=== PATIENT | female | born 1990 | race Caucasian/White ===

== ENCOUNTER 2020-08-04 15:46 | Day surgery (SDC) | payer BC ==
[2020-08-04] MEDS ORDERED: Lactated Ringers 1,000 ML IV SCH (16:00)
[2020-08-04] MEDS ORDERED: Lidocaine 1% with EPINEPHrine 1:100,000 20 ML MDV ONE (16:08)
[2020-08-04] MEDS ORDERED: ceFAZolin 2 GM in Premix Bag 1 BAG IV ONE (16:47)
[2020-08-04] MEDS ORDERED: Sodium Chloride 0.9% 2.5 ML Syringe FLUSH PRN (16:47)
[2020-08-04] MEDS ORDERED: Sodium Chloride 0.9% 10 ML SDV IV PRN (16:47)
[2020-08-04] MEDS ORDERED: Sodium Chloride 0.9% 10 ML Syringe FLUSH PRN (16:47)
[2020-08-04] MEDS ORDERED: Midazolam 1 MG/ML 2 ML SDV ONE ×2 (17:04→17:29)
[2020-08-04] MEDS ORDERED: fentaNYL 100 MCG/2 ML SDV ONE (17:04)
[2020-08-04] MEDS ORDERED: Propofol 200 MG/20 ML SDV ONE ×2 (17:04→18:36)
[2020-08-04] MEDS ORDERED: Glycopyrrolate 0.2 MG/ML SDV ONE (17:08)
[2020-08-04] MEDS ORDERED: Ondansetron 4 MG/2 ML SDV ONE (17:08)
[2020-08-04] MEDS ORDERED: Succinylcholine/Sod PF 100 MG/5 ML SYRINGE IV ONE (17:08)
[2020-08-04] MEDS ORDERED: Lidocaine 2% 5 ML SDV ONE (17:08)
[2020-08-04] MEDS ORDERED: fentaNYL 100 MCG/2 ML SDV IVPUSH PRN (17:34)
[2020-08-04] MEDS ORDERED: Acetaminophen 1,000 MG in Premix Bag 1 BAG IV PRN (17:34)
--- NOTE | 2020-08-04 17:34 | PCM.PREANE ---
Preanesthetic Assessment - Anesthesia/Transfusion/Family Hx Anesthesia History: Prior Anesthesia Without Reaction Family History of Anesthesia Reaction: No Transfusion History: No Prior Transfusion(s) - Physical Assessment NPO Status Date: 08/04/20 NPO Status Time: 07:00 Vital Signs: Last Vital Signs Temp 36.1 C 08/04/20 17:18 Pulse 88 08/04/20 17:18 Resp 15 08/04/20 17:18 BP 132/60 08/04/20 17:18 Pulse Ox 97 08/04/20 17:18 Height: 1.57 m Weight: 81.647 kg ASA Class: 1E - Lab Values: Laboratory Last Values WBC 18.10 K/uL (4.0-11.0) H 08/04/20 17:00 RBC 4.24 M/uL (4.30-5.90) L 08/04/20 17:00 Hgb 13.6 g/dL (12.0-16.0) 08/04/20 17:00 Hct 41.5 % (36.0-46.0) 08/04/20 17:00 MCV 97.9 fL (80.0-98.0) 08/04/20 17:00 MCH 32.1 pg (27.0-32.0) H 08/04/20 17:00 MCHC 32.8 g/dL (31.0-37.0) 08/04/20 17:00 RDW Std Deviation 48.4 fl (28.0-62.0) 08/04/20 17:00 RDW Coeff of Malissa 14 % (11.0-15.0) 08/04/20 17:00 Plt Count 270 K/uL (150-400) 08/04/20 17:00 MPV 9.50 fL (7.40-12.00) 08/04/20 17:00 Nucleated RBC % 0.0 /100WBC 08/04/20 17:00 Nucleated RBCs # 0 K/uL 08/04/20 17:00 SARS-CoV-2 RNA (BELLA) NEGATIVE (NEGATIVE) 08/04/20 16:00 - Allergies Allergies/Adverse Reactions: Allergies Allergy/AdvReac Type Severity Reaction Status Date / Time No Known Allergies Allergy Verified 08/04/20 16:23 - Acknowledgements Anesthesia Type Planned: Spinal Pt an Appropriate Candidate for the Planned Anesthesia: Yes Alternatives and Risks of Anesthesia Discussed w Pt/Guardian: Yes Pt/Guardian Understands and Agrees with Anesthesia Plan: Yes PreAnesthesia Questionnaire HEENT History: Reports: Impaired Vision Other HEENT History: wears glasses Cardiovascular History: Reports: None Gastrointestinal History: Reports: None Genitourinary History: Reports: None Musculoskeletal History: Reports: Fracture Other Musculoskeletal History: states had fractured vertebra Neurological History: Reports: None Psychiatric History: Reports: None Endocrine/Metabolic History: Reports: None Hematologic History: Reports: None Oncologic (Cancer) History: Reports: None Dermatologic History: Reports: None - Infectious Disease History Infectious Disease History: Reports: None - Past Surgical History Head Surgeries/Procedures: Reports: None HEENT Surgical History: Reports: Oral Surgery Other HEENT Surgeries/Procedures: states had wisdom teeth extracted Cardiovascular Surgical History: Reports: None Respiratory Surgical History: Reports: None GI Surgical History: Reports: None Female Surgical History: Reports: Other (See Below) Other Female Surgeries/Procedures: I&D bartholin abscess x 2 Endocrine Surgical History: Reports: None Neurological Surgical History: Reports: None Musculoskeletal Surgical History: Reports: Shoulder Surgery Oncologic Surgical History: Reports: None - SUBSTANCE USE Tobacco Use Status *Q: Current Every Day Tobacco User Tobacco Use Within Last Twelve Months: Cigarettes - HOME MEDS Home Medications: Home Meds Phentermine HCl 1 tab PO DAILY 08/04/20 [History] Sulfamethoxazole/Trimethoprim [Bactrim 400-80 MG] 2 tab PO ASDIRECTED 08/04/20 [History] estradioL [Estradiol] 1 tab PO DAILY 08/04/20 [History] - CURRENT (IN HOUSE) MEDS Current Meds: Current Medications Lactated Ringer's (Ringers, Lactated) 1,000 mls @ 125 mls/hr IV ASDIRECTED UNIQUE Last Admin: 08/04/20 17:22 Dose: 125 mls/hr Documented by: Sodium Chloride (Saline Flush) 10 ml FLUSH ASDIRECTED PRN PRN Reason: Keep Vein Open Sodium Chloride (Saline Flush) 2.5 ml FLUSH ASDIRECTED PRN PRN Reason: Keep Vein Open Sodium Chloride (Normal Saline) 10 ml IV ASDIRECTED PRN PRN Reason: IV Use Discontinued Medications Fentanyl (Sublimaze) Confirm Administered Dose 100 mcg .ROUTE .STK-MED ONE Stop: 08/04/20 17:05 Glycopyrrolate (Robinul) Confirm Administered Dose 0.2 mg .ROUTE .STK-MED ONE Stop: 08/04/20 17:09 Cefazolin Sodium/Dextrose 2 gm (/ Premix) 50 mls @ 100 mls/hr IV ONETIME ONE Stop: 08/04/20 17:16 Lidocaine (Xylocaine-Mpf 2%) Confirm Administered Dose 5 ml .ROUTE .STK-MED ONE Stop: 08/04/20 17:09 Lidocaine/Epinephrine (Xylocaine 1% With Epinephrine 1:100,000) Confirm Administered Dose 20 ml .ROUTE .STK-MED ONE Stop: 08/04/20 16:09 Midazolam HCl (Versed 1 Mg/Ml) Confirm Administered Dose 2 mg .ROUTE .STK-MED ONE Stop: 08/04/20 17:05 Midazolam HCl (Versed 1 Mg/Ml) Confirm Administered Dose 2 mg .ROUTE .STK-MED ONE Stop: 08/04/20 17:30 Ondansetron HCl (Zofran) Confirm Administered Dose 4 mg .ROUTE .STK-MED ONE Stop: 08/04/20 17:09 Propofol (Diprivan 20 Ml) Confirm Administered Dose 200 mg .ROUTE .STK-MED ONE Stop: 08/04/20 17:05 Vecuronium [place] (Vecuronium) Confirm Administered Dose 10 mg .ROUTE .STK-MED ONE Stop: 08/04/20 17:09
[2020-08-04] MEDS ORDERED: ceFAZolin 1 GM Vial ONE (17:41)
[2020-08-04] MEDS ORDERED: Sodium Chloride 0.9% 20 ML ONE (17:41)
[2020-08-04] MEDS ORDERED: Acetaminophen/oxyCODONE 325-5 MG Tab PO PRN (19:03)
[2020-08-04] MEDS ORDERED: Ketorolac 15 MG/ML SDV IM ONE (19:03)
--- NOTE | 2020-08-04 19:12 | PCM.POSTAN ---
POST ANESTHESIA ASSESSMENT - MENTAL STATUS Mental Status: Alert - VITAL SIGNS Vital Signs: Last Vital Signs Temp 36.4 C 08/04/20 18:48 Pulse 71 08/04/20 19:03 Resp 17 08/04/20 19:03 BP 122/86 08/04/20 19:03 Pulse Ox 96 08/04/20 19:03 - RESPIRATORY Respiratory Status: Respiratory Rate WNL - CARDIOVASCULAR CV Status: Pulse Rate WNL - GASTROINTESTINAL GI Status: No Symptoms - POST OP HYDRATION Hydration Status: Adequate & Stable
--- NOTE | 2020-08-04 19:21 | PCM48HPAN ---
Post Anesthesia Note - EVALUATION WITHIN 48HRS OF ANESTHETIC Vital Signs in Normal Range: Yes Patient Participated in Evaluation: Yes Respiratory Function Stable: Yes Airway Patent: Yes Cardiovascular Function Stable: Yes Hydration Status Stable: Yes Pain Control Satisfactory: Yes Nausea and Vomiting Control Satisfactory: Yes Mental Status Recovered: Yes Vital Signs: Last Vital Signs Temp 36.4 C 08/04/20 18:48 Pulse 71 08/04/20 19:03 Resp 17 08/04/20 19:03 BP 122/86 08/04/20 19:03 Pulse Ox 96 08/04/20 19:03
--- NOTE | 2020-08-04 21:40 | OR ---
SURGEON: Diego Gilbert MD DATE OF PROCEDURE: 08/04/2020 INDICATION FOR PROCEDURE: A 29-year-old with Bartholin's cyst abscess presenting for surgery. The patient noticed increasing swelling and pain of the left labia for the past 3 days. She was seen in the emergency room in [place] yesterday and diagnosed with Bartholin's cyst abscess. It was drained at bedside. She noticed that the swelling did not completely resolve, so she went back to the emergency room and had another I and D. She was placed on Bactrim, and she came to the clinic today because she continues to have pain iand noticed a deeper area that was not draining. She had an abscess previously in the same area 2 months ago. I reviewed options for treatment of the Bartholin's gland abscess including incision and drainage in the office versus marsupialization under anesthesia in the OR. The patient desires to have marsupialization under anesthesia. PREOPERATIVE DIAGNOSIS: Left Bartholin's gland abscess. POSTOPERATIVE DIAGNOSIS: Left Bartholin's gland abscess. PROCEDURE PERFORMED: Marsupialization of left Bartholin's gland. ANESTHESIA: Spinal. ANESTHESIOLOGIST: Dr. Paige Jones. FINDINGS: A 3 cm x 3cm Bartholin's gland abscess was noted in the left labia, deeper to the previous incision that was made by the ER provider. No further abscess were noted after drainage. The wound was packed with iodoform dressing. ESTIMATED BLOOD LOSS: 50 mL. DESCRIPTION OF PROCEDURE: Procedure was discussed with the patient, risks including bleeding, infection, DVTs, injury to surrounding organs. Questions were answered and consent was signed. The patient was taken to the operating room, where she received spinal anesthesia. She received ancef 2g IV. She was placed in dorsal lithotomy position with legs supported in stirrups. She was prepped with Betadine and draped in a sterile manner. A 3 cm x 3 cm left Bartholin's gland abscess was noted with fluctuance. An 3 cm vertical incision along the labia minora was previously made by the ED provider superficial to the abscess. 5cc of 1% lidocaine with epi was injected around the incision site. Anesthesia was confirmed. Metzenbaum scissors was used to dissect away the tissue surrounding the abscess, and purulent drainage was noted after rupture of the cyst. Swelling decreased significantly after the fluid was released. Loculations were freed with blunt dissection. Sterile water was used to thoroughly irrigate the cyst. The cyst wall was carefully dissected and removed, sent to Pathology for review. The edges of the incision were sutured circumferentially with 3-0 Vicryl to keep the incision open and facilitate drainage. The incision was hemostatic. Iodoform packing was used to pack the incision. The patient tolerated the procedure well. She was cleaned and sent to recovery room in stable condition. MALIK GÓMEZ /[id number] MTDD
== END 2020-08-05 00:16 | disposition home or self-care (01) ==
LOC: MW.SDS 15:46
PROVIDERS: ATTEND Obstetrics & Gynecology
DX: N75.1 Abscess of Bartholin's gland (principal); N75.0 Cyst of Bartholin's gland; F17.210 Nicotine dependence, cigarettes, uncomplicated; Z01.812 Encounter for preprocedural laboratory examination; Z20.828 Contact with and (suspected) exposure to other viral communicable diseases; Z79.899 Other long term (current) drug therapy
CPT/HCPCS: 51701; 56420; 84703; 85027; 87635; J0690; J2001; J2250; J2405; J2704; J3490; J7120; 00940; 88305; J0330; J3010; U0002

== ENCOUNTER 2020-08-18 14:17 | Day surgery (SDC) | payer BC ==
--- NOTE | 2020-08-18 14:32 | EDM.PDOC ---
ED HPI GENERAL MEDICAL PROBLEM - General Chief Complaint: Skin Complaint Stated Complaint: ABSCESS Time Seen by Provider: 08/18/20 14:19 Source of Information: Reports: Patient History Limitations: Reports: No Limitations - History of Present Illness INITIAL COMMENTS - FREE TEXT/NARRATIVE: HISTORY AND PHYSICAL: History of present illness: Patient is a 29-year-old female who presents to the emergency room with complaints of a unhealing abscess. She states she initially was seen in [place] for a Bartholin cyst abscess which she had several I & D's . Ultimately she was referred to Dr. Diego Gilbert for surgery. On 08/04/2020 Dr Gilbert performed a marsupialization of left Bartholin gland on the left labia. Patient reports that the labial incision healed appropriately but the abscess traveled into her glutes. She again had an I&D of the gluteal abscess which initially was 3 small incision sites that has opened into 1 large open sore that has purulent drainage. She previously had been on Bactrim DS and vancomycin IV. Her last dose of vancomycin was on 08/15/2020. She states over the weekend she continued to drain and was concerned so she returned to the [place] emergency department. [facility] had called and spoke with Dr. Escobedo who recommended she come to the emergency room for evaluation. Patient currently denies any pain, stating she takes Dilaudid and had a dose prior to coming here. Patient denies any fever, chills, headache, change in vision, syncope or near syncope. Denies any chest pain, back pain, shortness of breath or cough. Denies any abdominal pain, nausea, vomiting, diarrhea, constipation or dysuria. Has not noted any blood in urine or stool. Patient has been eating and drinking appropriately. Review of systems: As per history of present illness and below otherwise all systems reviewed and negative. Past medical history: As per history of present illness and as reviewed below otherwise noncontributory. Surgical history: As per history of present illness and as reviewed below otherwise noncontributory. Social history: See social history for further information Family history: As per history of present illness and as reviewed below otherwise noncontributory. Physical exam: General: Well developed and well nourished 29 year old female. Alert and orientated x 3. Nontoxic in appearance and in no acute distress. Vital signs are stable and have been reviewed by me. Nursing notes were reviewed. HEENT: Atraumatic, normocephalic, pupils equal and reactive bilaterally, negative for conjunctival pallor or scleral icterus, mucous membranes moist, trachea midline. No drooling or trismus noted. No meningeal signs. No hot potato voice noted. Lungs: Clear to auscultation, breath sounds equal bilaterally, chest nontender. Normal work of breathing, no accessory muscles used. Heart: S1S2, regular rate and rhythm without overt murmur Abdomen: Soft, nondistended, nontender. Negative for masses or hepatosplenomegaly. Negative for costovertebral tenderness. Pelvis: Stable nontender. /Rectal: This was done with consent and a machine staker at the bedside. She has a large open wound to the left glutes with indurated edges that are firm to touch up to her tailbone. Skin: (SEE RECTAL FOR DETAILS) otherwise skin is intact, warm, dry. No lesions or rashes noted. Hematologic: No petechiae or purpra. Mucosa appropriate color and normal nail bed color and refill. Extremities: Atraumatic, moves all extremities per self without difficulty or deficits, negative for cords or calf pain. Neurovascular unremarkable. Neuro: Awake, alert, oriented. Cranial nerves II through XII unremarkable. Cerebellum unremarkable. Motor and sensory unremarkable throughout. Exam nonfocal. Psychiatric: Mood and affect are appropriate. Normal thought process. Answering questions appropriately. Notes: The [place] ER had spoke with DR Escobedo, who requested she initially be seen in the ED. Patient states she is currently pain-free and declines wanting anything at this time. We will do lab work and a CT of the abdomen and pelvis to assess the extent of this gluteal abscess/wound. 1600: Dr Escobedo here to see patient. 1720: CT demonstrates soft tissue stranding within the left gluteal superficial soft tissues with minimal amount of air and nonspecific fluid. No evidence of large rim enhancing fluid collection or extension to the perirectal space. Diagnosis for necrotizing fasciitis is a clinical diagnosis and correlation with serum laboratory values. Dr. Escobedo has seen these results in the patient's lab values. Patient will be taken to the OR for further care. Diagnostics: CBC, CMP, BC x 2, Lactate, Abd/Pelvis CT, [employer]: SL Impression: Gluteal Abscess Plan: To OR with Gregg Definitive disposition and diagnosis as appropriate pending reevaluation and review of above. - Related Data Allergies Allergy/AdvReac Type Severity Reaction Status Date / Time No Known Allergies Allergy Verified 08/18/20 14:55 Home Meds: Home Meds Acetaminophen/oxyCODONE [Percocet 325-5 MG] 1 tab PO Q4H PRN #12 tablet 08/04/20 [Rx] Ibuprofen [Motrin] 600 mg PO Q6H PRN #20 tab 08/04/20 [Rx] estradioL [Estradiol] 1 tab PO DAILY 08/04/20 [History] Hydrocodone/Acetaminophen [Hydrocodon-Acetaminophen 5-325] 1 each PO Q6HR PRN 5 Days #20 tablet 08/18/20 [Rx] Past Medical History HEENT History: Reports: Impaired Vision Other HEENT History: wears glasses Cardiovascular History: Reports: None Gastrointestinal History: Reports: None Genitourinary History: Reports: None Musculoskeletal History: Reports: Fracture Other Musculoskeletal History: states had fractured vertebra Neurological History: Reports: None Psychiatric History: Reports: None Endocrine/Metabolic History: Reports: None Hematologic History: Reports: None Oncologic (Cancer) History: Reports: None Dermatologic History: Reports: None - Infectious Disease History Infectious Disease History: Reports: None - Past Surgical History Head Surgeries/Procedures: Reports: None HEENT Surgical History: Reports: Oral Surgery Other HEENT Surgeries/Procedures: states had wisdom teeth extracted Cardiovascular Surgical History: Reports: None Respiratory Surgical History: Reports: None GI Surgical History: Reports: None Female Surgical History: Reports: Other (See Below) Other Female Surgeries/Procedures: I&D bartholin abscess x 2 Endocrine Surgical History: Reports: None Neurological Surgical History: Reports: None Musculoskeletal Surgical History: Reports: Shoulder Surgery Oncologic Surgical History: Reports: None ED ROS GENERAL - Review of Systems Review Of Systems: Comprehensive ROS is negative, except as noted in HPI. ED EXAM, SKIN/RASH Exam: See Below (See dictation) Course - Vital Signs Last Recorded V/S: Last Vital Signs Temp 97.2 F 08/18/20 23:05 Pulse 75 08/18/20 23:05 Resp 17 08/18/20 23:05 BP 123/78 08/18/20 23:05 Pulse Ox 97 08/18/20 23:05 - Orders/Labs/Meds Labs: Laboratory Tests 08/18/20 08/18/20 08/18/20 Range/Units 15:02 16:25 16:25 WBC 9.62 (4.0-11.0) K/uL RBC 3.53 L (4.30-5.90) M/uL Hgb 11.2 L (12.0-16.0) g/dL Hct 34.3 L (36.0-46.0) % MCV 97.2 (80.0-98.0) fL MCH 31.7 (27.0-32.0) pg MCHC 32.7 (31.0-37.0) g/dL RDW Std Deviation 48.0 (28.0-62.0) fl RDW Coeff of Malissa 14 (11.0-15.0) % Plt Count 747 H (150-400) K/uL MPV 8.30 (7.40-12.00) fL Neut % (Auto) 75.8 (48.0-80.0) % Lymph % (Auto) 16.4 (16.0-40.0) % [place] % (Auto) 6.9 (0.0-15.0) % Eos % (Auto) 0.6 (0.0-7.0) % Baso % (Auto) 0.3 (0.0-1.5) % Neut # (Auto) 7.3 H (1.4-5.7) K/uL Lymph # (Auto) 1.6 (0.6-2.4) K/uL [place] # (Auto) 0.7 (0.0-0.8) K/uL Eos # (Auto) 0.1 (0.0-0.7) K/uL Baso # (Auto) 0.0 (0.0-0.1) K/uL Nucleated RBC % 0.0 /100WBC Nucleated RBCs # 0 K/uL Lactate 0.7 (0.20-2.00) mmol/L Sodium (136-145) mmol/L Potassium (3.5-5.1) mmol/L Chloride (98-107) mmol/L Carbon Dioxide (21.0-32.0) mmol/L BUN (7.0-18.0) mg/dL Creatinine (0.6-1.0) mg/dL Est Cr Clr Drug Dosing mL/min Estimated GFR (MDRD) ml/min Glucose (74-106) mg/dL Calcium (8.5-10.1) mg/dL Total Bilirubin (0.2-1.0) mg/dL AST (15-37) IU/L ALT (14-63) IU/L Alkaline Phosphatase (46-116) U/L Total Protein (6.4-8.2) g/dL Albumin (3.4-5.0) g/dL Globulin (2.6-4.0) g/dL Albumin/Globulin Ratio (0.9-1.6) HCG, Qual (NEG) SARS-CoV-2 RNA (BELLA) NEGATIVE (NEGATIVE) 08/18/20 08/18/20 Range/Units 16:25 16:25 WBC (4.0-11.0) K/uL RBC (4.30-5.90) M/uL Hgb (12.0-16.0) g/dL Hct (36.0-46.0) % MCV (80.0-98.0) fL MCH (27.0-32.0) pg MCHC (31.0-37.0) g/dL RDW Std Deviation (28.0-62.0) fl RDW Coeff of Malissa (11.0-15.0) % Plt Count (150-400) K/uL MPV (7.40-12.00) fL Neut % (Auto) (48.0-80.0) % Lymph % (Auto) (16.0-40.0) % [place] % (Auto) (0.0-15.0) % Eos % (Auto) (0.0-7.0) % Baso % (Auto) (0.0-1.5) % Neut # (Auto) (1.4-5.7) K/uL Lymph # (Auto) (0.6-2.4) K/uL [place] # (Auto) (0.0-0.8) K/uL Eos # (Auto) (0.0-0.7) K/uL Baso # (Auto) (0.0-0.1) K/uL Nucleated RBC % /100WBC Nucleated RBCs # K/uL Lactate (0.20-2.00) mmol/L Sodium 137 (136-145) mmol/L Potassium 4.2 (3.5-5.1) mmol/L Chloride 101 (98-107) mmol/L Carbon Dioxide 25.1 (21.0-32.0) mmol/L BUN 13 (7.0-18.0) mg/dL Creatinine 0.8 (0.6-1.0) mg/dL Est Cr Clr Drug Dosing 80.59 mL/min Estimated GFR (MDRD) > 60.0 ml/min Glucose 87 (74-106) mg/dL Calcium 8.9 (8.5-10.1) mg/dL Total Bilirubin 0.3 (0.2-1.0) mg/dL AST 112 H (15-37) IU/L ALT 235 H (14-63) IU/L Alkaline Phosphatase 152 H (46-116) U/L Total Protein 7.3 (6.4-8.2) g/dL Albumin 2.7 L (3.4-5.0) g/dL Globulin 4.6 H (2.6-4.0) g/dL Albumin/Globulin Ratio 0.6 L (0.9-1.6) HCG, Qual NEGATIVE (NEG) SARS-CoV-2 RNA (BELLA) (NEGATIVE) Meds: Medications Discontinued Medications Generic Name Dose Route Start Last Admin Trade Name Freq PRN Reason Stop Dose Admin Hydrocodone Bitart/Acetaminophen 1 - 2 tab 08/18/20 19:43 08/18/20 22:50 [place] 325-5 Mg PO 1 tab Q4H PRN Administration Pain (moderate 4-6) Bupivacaine HCl Confirm 08/18/20 18:07 Sensorcaine-Mpf 0.5% Administered 08/18/20 18:08 Dose 10 ml .ROUTE .STK-MED ONE Cefazolin Sodium Confirm 08/18/20 18:07 Ancef Administered 08/18/20 18:08 Dose 1 gm .ROUTE .STK-MED ONE Dexamethasone Confirm 08/18/20 18:11 Dexamethasone Administered 08/18/20 18:12 Dose 20 mg .ROUTE .STK-MED ONE Fentanyl Confirm 08/18/20 18:07 Sublimaze Administered 08/18/20 18:08 Dose 100 mcg .ROUTE .STK-MED ONE Fentanyl 100 mcg 08/18/20 20:01 08/18/20 20:06 Fentanyl IVPUSH 08/18/20 20:02 100 mcg ONETIME ONE Administration Fentanyl Confirm 08/18/20 20:04 Sublimaze Administered 08/18/20 20:05 Dose 100 mcg .ROUTE .STK-MED ONE Glycopyrrolate Confirm 08/18/20 18:07 Robinul Administered 08/18/20 18:08 Dose 0.2 mg .ROUTE .STK-MED ONE Acetaminophen Confirm 08/18/20 18:09 Ofirmev Administered 08/18/20 18:10 Dose 100 mls @ as directed .ROUTE .STK-MED ONE Lactated Ringer's 1,000 mls @ 125 mls/hr 08/18/20 19:45 Ringers, Lactated IV ASDIRECTED UNIQUE Iopamidol 100 ml 08/18/20 16:32 08/18/20 16:33 Isovue Multipack-370 (76%) IVPUSH 08/18/20 16:33 100 ml ONETIME ONE Administration Midazolam HCl Confirm 08/18/20 18:07 Versed 1 Mg/Ml Administered 08/18/20 18:08 Dose 2 mg .ROUTE .STK-MED ONE Morphine Sulfate Confirm 08/18/20 18:12 Morphine Administered 08/18/20 18:13 Dose 10 mg .ROUTE .STK-MED ONE Morphine Sulfate 1 - 5 mg 08/18/20 19:43 Morphine IVPUSH Q1H PRN Pain (severe 7-10) Ondansetron HCl Confirm 08/18/20 18:07 Zofran Administered 08/18/20 18:08 Dose 4 mg .ROUTE .STK-MED ONE Propofol Confirm 08/18/20 18:07 Diprivan 20 Ml Administered 08/18/20 18:08 Dose 400 mg .ROUTE .STK-MED ONE Rocuronium Berkey Confirm 08/18/20 18:07 Rocuronium Berkey Administered 08/18/20 18:08 Dose 50 mg .ROUTE .STK-MED ONE Sugammadex Sodium Confirm 08/18/20 18:09 Bridion Administered 08/18/20 18:10 Dose 200 mg .ROUTE .STK-MED ONE Sugammadex Sodium Confirm 08/18/20 19:41 Bridion Administered 08/18/20 19:42 Dose 200 mg .ROUTE .STK-MED ONE Departure - Departure Time of Disposition: 17:21 Disposition: Still A Patient 30 Clinical Impression: Abscess - Discharge Information
[2020-08-18] MEDS ORDERED: Iopamidol 755 MG/ML 500 ML Multipack Bottle IVPUSH ONE (16:32)
[2020-08-18 16:57] LABS: BLOOD UREA NITROGEN,BUN 13 mg/dL (7.0-18.0); CARBON DIOXIDE,CO2 25.1 mmol/L (21.0-32.0); CHLORIDE,CL 101 mmol/L (98-107); GLUCOSE RANDOM 87 mg/dL (74-106); POTASSIUM,K 4.2 mmol/L (3.5-5.1); SODIUM,NA 137 mmol/L (136-145)
--- NOTE | 2020-08-18 17:16 | CT ---
Indication: Rectal, glued abscess Technique: Volumetric multidetector CT images of the abdomen and pelvis were obtained after the administration of intravenous contrast. 100 cc Isovue-370 low as molar intravenous contrast Comparison: None available. Findings: The lung bases are clear. There is demonstration of a ill-defined hypodensity in the anterior inferior right liver too small to characterize. Otherwise the liver demonstrates no focal abnormality. The portal vein is patent. The gallbladder is unremarkable without evidence of radiopaque calculus. There is no significant common biliary ductal dilatation or abrupt cut off. The spleen is normal in enhancement and size. The stomach and duodenum are grossly unremarkable. The pancreas is normal in enhancement without significant atrophy. The adrenal glands are unremarkable. The kidneys demonstrate preserved corticomedullary differentiation without evidence of obstructive uropathy. There is a moderate amount of stool appreciated throughout the colon. There is demonstration of superficial soft tissues thickening and stranding within the left gluteal soft tissues with minimal foci of air and likely fluid below the perirectal space. This measures up to 2.3 centimeters in greatest dimension. The appendix is unremarkable. There is no significant mesenteric, retroperitoneal, or pelvic sidewall lymph nodes. The aorta is nonaneurysmal. There is no significant atherosclerotic disease appreciated. The solid pelvic viscera are grossly unremarkable. There is no free fluid or free air. The anterior abdominal wall is intact without significant hernias. The lumbar vertebral body heights are grossly maintained. Mild endplate Schmorl`s deformities of the partially visualized lower thoracic vertebral bodies are appreciated. Impression: Demonstration of soft tissue stranding within the left gluteal superficial soft tissues with minimal amount of air and nonspecific fluid. No evidence of large rim enhancing fluid collection or extension to the perirectal space. Diagnosis for necrotizing fasciitis is a clinical diagnosis and correlation with serum laboratory values computing a LRINEC score should be made if there is persistent clinical concern. Please note that all CT scans at this facility use dose modulation, iterative reconstruction, and/or weight-based dosing when appropriate to reduce radiation dose to as low as reasonably achievable. Dictated by Polo Pablo MD @ Aug 18 2020 5:07PM Signed by Dr. Polo Pablo @ Aug 18 2020 5:15PM
--- NOTE | 2020-08-18 17:52 | PCM.CONS ---
H&P History of Present Illness - General Date of Service: 08/18/20 Admit Problem/Dx: Admission Diagnosis/Problem Admission Diagnosis/Problem Perirectal abscess Recurrent perirectal abscess Source of Information: Patient History Limitations: Reports: No Limitations - History of Present Illness Initial Comments - Free Text/Narative: Patient is a 29-year-old female who underwent incision, drainage and marsupialization of Bartholin's abscess on August 04. She has continued to struggle with periodic drainage. She did undergo a separate incision and drainage procedure in [place], but continues to have trouble and was referred down now for exam under anesthesia, and surgery as needed. Symptom Onset Date: 08/04/20 Duration of Symptoms: Reports: Day(s): Location: Reports: Pelvis Quality: Reports: Pressure, Same as Previous Episode Improves with: Reports: None Worsens with: Reports: None Associated Symptoms: Reports: Other (Persistent purulent drainage) - Related Data Allergies/Adverse Reactions: Allergies Allergy/AdvReac Type Severity Reaction Status Date / Time No Known Allergies Allergy Verified 08/18/20 14:55 Home Medications: Home Meds Acetaminophen/oxyCODONE [Percocet 325-5 MG] 1 tab PO Q4H PRN #12 tablet 08/04/20 [Rx] Ibuprofen [Motrin] 600 mg PO Q6H PRN #20 tab 08/04/20 [Rx] estradioL [Estradiol] 1 tab PO DAILY 08/04/20 [History] Past Medical History HEENT History: Reports: Impaired Vision Other HEENT History: wears glasses Cardiovascular History: Reports: None Gastrointestinal History: Reports: None Genitourinary History: Reports: None Musculoskeletal History: Reports: Fracture Other Musculoskeletal History: states had fractured vertebra Neurological History: Reports: None Psychiatric History: Reports: None Endocrine/Metabolic History: Reports: None Hematologic History: Reports: None Oncologic (Cancer) History: Reports: None Dermatologic History: Reports: None - Infectious Disease History Infectious Disease History: Reports: None - Past Surgical History Head Surgeries/Procedures: Reports: None HEENT Surgical History: Reports: Oral Surgery Other HEENT Surgeries/Procedures: states had wisdom teeth extracted Cardiovascular Surgical History: Reports: None Respiratory Surgical History: Reports: None GI Surgical History: Reports: None Female Surgical History: Reports: Other (See Below) Other Female Surgeries/Procedures: I&D bartholin abscess x 2 Endocrine Surgical History: Reports: None Neurological Surgical History: Reports: None Musculoskeletal Surgical History: Reports: Shoulder Surgery Oncologic Surgical History: Reports: None Social & Family History - Family History Family Medical History: Noncontributory - Tobacco Use Tobacco Use Status *Q: Current Every Day Tobacco User Years of Tobacco use: 10 Packs/Tins Daily: 0.1 - Recreational Drug Use Recreational Drug Use: No H&P Review of Systems - Review of Systems: Review Of Systems: See Below General: Denies: Fever, Chills, Malaise, Weakness, Fatigue HEENT: Reports: No Symptoms Pulmonary: Denies: Shortness of Breath, Wheezing Cardiovascular: Denies: Chest Pain, Palpitations, Dyspnea on Exertion, Edema Gastrointestinal: Denies: Abdominal Pain, Anorexia, Black Stool, Bloody Stool, Diarrhea, Distension, Nausea, Stool Incontinence, Vomiting Genitourinary: Denies: Dysuria, Frequency, Burning, Pain, Urgency Musculoskeletal: Reports: No Symptoms Skin: Denies: Cyanosis, Jaundice, Mottled, Pallor Psychiatric: Reports: No Symptoms Neurological: Reports: No Symptoms Hematologic/Lymphatic: Reports: No Symptoms Immunologic: Reports: No Symptoms Exam - Exam Exam: See Below - Vital Signs Vital Signs: Last Vital Signs Temp 96.6 F L 08/18/20 14:50 Pulse 87 08/18/20 15:52 Resp 18 08/18/20 14:50 BP 113/62 08/18/20 15:52 Pulse Ox 95 08/18/20 15:52 Weight: 180 lb - Exam Quality Assessment: No: Central Line/PICC, Urinary Catheter General: Alert, Oriented, Cooperative, Mild Distress HEENT: Conjunctiva Clear, Nares Patent, Pupils Equal, Pupils Reactive. No: Scleral Icterus Neck: Supple, Trachea Midline Lungs: Clear to Auscultation, Normal Respiratory Effort Cardiovascular: Regular Rate, Regular Rhythm. No: Tachycardia GI/Abdominal Exam: Normal Bowel Sounds, Soft, Non-Tender, No Distention, No Mass, Pelvis Stable. No: Guarding, Rigid, Rebound (Female) Exam: Deferred Rectal (Female) Exam: Other (Patient has a large open wound on the left buttock. There are at least 2 areas of purulent drainage coming through that wound. The incision is at least 4 inches long.) Back Exam: Normal Inspection Extremities: Normal Inspection, No Pedal Edema, Normal Capillary Refill Peripheral Pulses: 4+: Posterior Tibial (L), Posterior Tibial (R), Dorsalis Pedis (L), Dorsalis Pedis (R) Skin: Warm, Dry, Intact - Patient Data Lab Results Last 24 hrs: Laboratory Results - last 24 hr 08/18/20 08/18/20 08/18/20 Range/Units 15:02 16:25 16:25 WBC 9.62 (4.0-11.0) K/uL RBC 3.53 L (4.30-5.90) M/uL Hgb 11.2 L (12.0-16.0) g/dL Hct 34.3 L (36.0-46.0) % MCV 97.2 (80.0-98.0) fL MCH 31.7 (27.0-32.0) pg MCHC 32.7 (31.0-37.0) g/dL RDW Std Deviation 48.0 (28.0-62.0) fl RDW Coeff of Malissa 14 (11.0-15.0) % Plt Count 747 H (150-400) K/uL MPV 8.30 (7.40-12.00) fL Neut % (Auto) 75.8 (48.0-80.0) % Lymph % (Auto) 16.4 (16.0-40.0) % [place] % (Auto) 6.9 (0.0-15.0) % Eos % (Auto) 0.6 (0.0-7.0) % Baso % (Auto) 0.3 (0.0-1.5) % Neut # (Auto) 7.3 H (1.4-5.7) K/uL Lymph # (Auto) 1.6 (0.6-2.4) K/uL [place] # (Auto) 0.7 (0.0-0.8) K/uL Eos # (Auto) 0.1 (0.0-0.7) K/uL Baso # (Auto) 0.0 (0.0-0.1) K/uL Nucleated RBC % 0.0 /100WBC Nucleated RBCs # 0 K/uL Lactate 0.7 (0.20-2.00) mmol/L Sodium (136-145) mmol/L Potassium (3.5-5.1) mmol/L Chloride (98-107) mmol/L Carbon Dioxide (21.0-32.0) mmol/L BUN (7.0-18.0) mg/dL Creatinine (0.6-1.0) mg/dL Est Cr Clr Drug Dosing mL/min Estimated GFR (MDRD) ml/min Glucose (74-106) mg/dL Calcium (8.5-10.1) mg/dL Total Bilirubin (0.2-1.0) mg/dL AST (15-37) IU/L ALT (14-63) IU/L Alkaline Phosphatase (46-116) U/L Total Protein (6.4-8.2) g/dL Albumin (3.4-5.0) g/dL Globulin (2.6-4.0) g/dL Albumin/Globulin Ratio (0.9-1.6) SARS-CoV-2 RNA (BELLA) NEGATIVE (NEGATIVE) 08/18/20 Range/Units 16:25 WBC (4.0-11.0) K/uL RBC (4.30-5.90) M/uL Hgb (12.0-16.0) g/dL Hct (36.0-46.0) % MCV (80.0-98.0) fL MCH (27.0-32.0) pg MCHC (31.0-37.0) g/dL RDW Std Deviation (28.0-62.0) fl RDW Coeff of Malissa (11.0-15.0) % Plt Count (150-400) K/uL MPV (7.40-12.00) fL Neut % (Auto) (48.0-80.0) % Lymph % (Auto) (16.0-40.0) % [place] % (Auto) (0.0-15.0) % Eos % (Auto) (0.0-7.0) % Baso % (Auto) (0.0-1.5) % Neut # (Auto) (1.4-5.7) K/uL Lymph # (Auto) (0.6-2.4) K/uL [place] # (Auto) (0.0-0.8) K/uL Eos # (Auto) (0.0-0.7) K/uL Baso # (Auto) (0.0-0.1) K/uL Nucleated RBC % /100WBC Nucleated RBCs # K/uL Lactate (0.20-2.00) mmol/L Sodium 137 (136-145) mmol/L Potassium 4.2 (3.5-5.1) mmol/L Chloride 101 (98-107) mmol/L Carbon Dioxide 25.1 (21.0-32.0) mmol/L BUN 13 (7.0-18.0) mg/dL Creatinine 0.8 (0.6-1.0) mg/dL Est Cr Clr Drug Dosing 80.59 mL/min Estimated GFR (MDRD) > 60.0 ml/min Glucose 87 (74-106) mg/dL Calcium 8.9 (8.5-10.1) mg/dL Total Bilirubin 0.3 (0.2-1.0) mg/dL AST 112 H (15-37) IU/L ALT 235 H (14-63) IU/L Alkaline Phosphatase 152 H (46-116) U/L Total Protein 7.3 (6.4-8.2) g/dL Albumin 2.7 L (3.4-5.0) g/dL Globulin 4.6 H (2.6-4.0) g/dL Albumin/Globulin Ratio 0.6 L (0.9-1.6) SARS-CoV-2 RNA (BELLA) (NEGATIVE) Result Diagrams: 08/18/20 16:25 08/18/20 16:25 Sepsis Event Note - Evaluation Sepsis Screening Result: Possible Sepsis Risk - Focused Exam Vital Signs: Vital Signs Temp Pulse Resp BP Pulse Ox 08/18/20 15:52 87 113/62 95 08/18/20 15:23 81 120/60 96 08/18/20 14:52 93 116/66 95 08/18/20 14:50 96.6 F L 94 18 116/66 95 Consult PN Assessment/Plan Procedures: Procedures CHORIONIC GONADOTROPIN ASSAY (08/04/20) COMPLETE CBC AUTOMATED (08/04/20) DRAINAGE OF GLAND ABSCESS (08/04/20) INSERT BLADDER CATHETER (08/04/20) SARS-COV2 COVID-19 AMP PRB (08/04/20) (1) Perirectal abscess SNOMED Code(s): 39648573 Code(s): K61.1 - RECTAL ABSCESS Priority: High Current Visit: Yes Problem List Initiated/Reviewed/Updated: Yes My Orders Last 24 Hours: My Active Orders 08/18/20 Breakfast Nothing Per Oral Diet [DIET] 08/18/20 17:41 Intake and Output [RC] QSHIFT Oxygen Therapy [RC] PRN Pulse Oximetry [RC] INTERMITTENT Vital Signs [RC] PER UNIT ROUTINE Sequential Compression Device [OM.PC] Routine 08/18/20 17:43 Patient Status [ADT] Routine 08/18/20 17:44 Skin Preparation [RC] .PREOP Verify Patient Consent Obtain [RC] .PREOP 08/18/20 17:46 Antiembolic Devices [RC] PER UNIT ROUTINE Plan: Examination under anesthesia. Drainage of recurrent perirectal abscess as needed with placement of a drain. The operative procedures, along with the risks including but not limited to bleeding, infection, pneumonia, deep venous thrombosis, pulmonary emboli, recurrent abscess, and the need for drainage have been reviewed with the patient in the emergency room today. Patient states she understands. She was given an opportunity ask questions and her questions were answered. She wishes to proceed. She is aware that we will do this on an outpatient basis and that she should be able to go home this evening.
[2020-08-18] MEDS ORDERED: ceFAZolin 1 GM Vial ONE (18:07)
[2020-08-18] MEDS ORDERED: Ondansetron 4 MG/2 ML SDV ONE (18:07)
[2020-08-18] MEDS ORDERED: Rocuronium Bromide 50 MG/5 ML Syringe ONE (18:07)
[2020-08-18] MEDS ORDERED: Glycopyrrolate 0.2 MG/ML SDV ONE (18:07)
[2020-08-18] MEDS ORDERED: Midazolam 1 MG/ML 2 ML SDV ONE (18:07)
[2020-08-18] MEDS ORDERED: Propofol 200 MG/20 ML SDV ONE (18:07)
[2020-08-18] MEDS ORDERED: Bupivacaine 0.5% 10 ML SDV ONE (18:07)
[2020-08-18] MEDS ORDERED: fentaNYL 100 MCG/2 ML SDV ONE ×2 (18:07→20:04)
[2020-08-18] MEDS ORDERED: Sugammadex Sodium 200 MG/2 ML VIAL ONE ×2 (18:09→19:41)
[2020-08-18] MEDS ORDERED: Dexamethasone 4 MG/ML 5 ML MDV ONE (18:11)
[2020-08-18] MEDS ORDERED: Morphine 10 MG/ML Syringe ONE (18:12)
--- NOTE | 2020-08-18 18:31 | PCM.PREANE ---
Preanesthetic Assessment - Anesthesia/Transfusion/Family Hx Anesthesia History: Prior Anesthesia Without Reaction Family History of Anesthesia Reaction: No Transfusion History: No Prior Transfusion(s) Intubation History: Intubation other than for Surgery in past - Review of Systems General: Other (Left flank abcess) Pulmonary: No Symptoms Cardiovascular: No Symptoms Gastrointestinal: No Symptoms Neurological: No Symptoms (Platelets 474,000) Other: Reports: Anxiety - Physical Assessment Vital Signs: Last Vital Signs Temp 35.9 C L 08/18/20 14:50 Pulse 87 08/18/20 15:52 Resp 18 08/18/20 14:50 BP 113/62 08/18/20 15:52 Pulse Ox 95 08/18/20 15:52 Height: 1.57 m Weight: 81.647 kg ASA Class: 2E Mental Status: Alert & Oriented x3 Airway Class: Mallampati = 2 Dentition: Reports: Normal Dentition Thyro-Mental Finger Breadths: 3 Mouth Opening Finger Breadths: 3 ROM/Head Extension: Full Lungs: Clear to Auscultation Cardiovascular: Regular Rate - Lab Values: Laboratory Last Values WBC 9.62 K/uL (4.0-11.0) 08/18/20 16:25 RBC 3.53 M/uL (4.30-5.90) L 08/18/20 16:25 Hgb 11.2 g/dL (12.0-16.0) L 08/18/20 16:25 Hct 34.3 % (36.0-46.0) L 08/18/20 16:25 MCV 97.2 fL (80.0-98.0) 08/18/20 16:25 MCH 31.7 pg (27.0-32.0) 08/18/20 16:25 MCHC 32.7 g/dL (31.0-37.0) 08/18/20 16:25 RDW Std Deviation 48.0 fl (28.0-62.0) 08/18/20 16:25 RDW Coeff of Malissa 14 % (11.0-15.0) 08/18/20 16:25 Plt Count 747 K/uL (150-400) H 08/18/20 16:25 MPV 8.30 fL (7.40-12.00) 08/18/20 16:25 Neut % (Auto) 75.8 % (48.0-80.0) 08/18/20 16:25 Lymph % (Auto) 16.4 % (16.0-40.0) 08/18/20 16:25 [place] % (Auto) 6.9 % (0.0-15.0) 08/18/20 16:25 Eos % (Auto) 0.6 % (0.0-7.0) 08/18/20 16:25 Baso % (Auto) 0.3 % (0.0-1.5) 08/18/20 16:25 Neut # (Auto) 7.3 K/uL (1.4-5.7) H 08/18/20 16:25 Lymph # (Auto) 1.6 K/uL (0.6-2.4) 08/18/20 16:25 [place] # (Auto) 0.7 K/uL (0.0-0.8) 08/18/20 16:25 Eos # (Auto) 0.1 K/uL (0.0-0.7) 08/18/20 16:25 Baso # (Auto) 0.0 K/uL (0.0-0.1) 08/18/20 16:25 Nucleated RBC % 0.0 /100WBC 08/18/20 16:25 Nucleated RBCs # 0 K/uL 08/18/20 16:25 Lactate 0.7 mmol/L (0.20-2.00) 08/18/20 16:25 Sodium 137 mmol/L (136-145) 08/18/20 16:25 Potassium 4.2 mmol/L (3.5-5.1) 08/18/20 16:25 Chloride 101 mmol/L (98-107) 08/18/20 16:25 Carbon Dioxide 25.1 mmol/L (21.0-32.0) 08/18/20 16:25 BUN 13 mg/dL (7.0-18.0) 08/18/20 16:25 Creatinine 0.8 mg/dL (0.6-1.0) 08/18/20 16:25 Est Cr Clr Drug Dosing 80.59 mL/min 08/18/20 16:25 Estimated GFR (MDRD) > 60.0 ml/min 08/18/20 16:25 Glucose 87 mg/dL (74-106) 08/18/20 16:25 Calcium 8.9 mg/dL (8.5-10.1) 08/18/20 16:25 Total Bilirubin 0.3 mg/dL (0.2-1.0) 08/18/20 16:25 AST 112 IU/L (15-37) H 08/18/20 16:25 ALT 235 IU/L (14-63) H 08/18/20 16:25 Alkaline Phosphatase 152 U/L (46-116) H 08/18/20 16:25 Total Protein 7.3 g/dL (6.4-8.2) 08/18/20 16:25 Albumin 2.7 g/dL (3.4-5.0) L 08/18/20 16:25 Globulin 4.6 g/dL (2.6-4.0) H 08/18/20 16:25 Albumin/Globulin Ratio 0.6 (0.9-1.6) L 08/18/20 16:25 SARS-CoV-2 RNA (BELLA) NEGATIVE (NEGATIVE) 08/18/20 15:02 - Allergies Allergies/Adverse Reactions: Allergies Allergy/AdvReac Type Severity Reaction Status Date / Time No Known Allergies Allergy Verified 08/18/20 14:55 - Blood Blood Available: No Product(s) Available: None - Anesthesia Plan Pre-Op Medication Ordered: None - Acknowledgements Anesthesia Type Planned: General Anesthesia Pt an Appropriate Candidate for the Planned Anesthesia: Yes Alternatives and Risks of Anesthesia Discussed w Pt/Guardian: Yes Pt/Guardian Understands and Agrees with Anesthesia Plan: Yes Additional Comments: Abcess L buttocks. Previously drained with SAB. Has some issues with nausea. Elevated platelet count of unknown origin. Will discuss SAB with surgeon. Otherwise GAET. COVID neg. Awaiting PG test. PreAnesthesia Questionnaire HEENT History: Reports: Impaired Vision Other HEENT History: wears glasses Cardiovascular History: Reports: None Gastrointestinal History: Reports: None Genitourinary History: Reports: None Musculoskeletal History: Reports: Fracture Other Musculoskeletal History: states had fractured vertebra Neurological History: Reports: None Psychiatric History: Reports: None Endocrine/Metabolic History: Reports: None Hematologic History: Reports: None Oncologic (Cancer) History: Reports: None Dermatologic History: Reports: None - Infectious Disease History Infectious Disease History: Reports: None - Past Surgical History Head Surgeries/Procedures: Reports: None HEENT Surgical History: Reports: Oral Surgery Other HEENT Surgeries/Procedures: states had wisdom teeth extracted Cardiovascular Surgical History: Reports: None Respiratory Surgical History: Reports: None GI Surgical History: Reports: None Female Surgical History: Reports: Other (See Below) Other Female Surgeries/Procedures: I&D bartholin abscess x 2 Endocrine Surgical History: Reports: None Neurological Surgical History: Reports: None Musculoskeletal Surgical History: Reports: Shoulder Surgery Oncologic Surgical History: Reports: None - SUBSTANCE USE Tobacco Use Status *Q: Current Every Day Tobacco User Tobacco Use Within Last Twelve Months: Cigarettes Recreational Drug Use History: No - HOME MEDS Home Medications: Home Meds Acetaminophen/oxyCODONE [Percocet 325-5 MG] 1 tab PO Q4H PRN #12 tablet 08/04/20 [Rx] Ibuprofen [Motrin] 600 mg PO Q6H PRN #20 tab 08/04/20 [Rx] estradioL [Estradiol] 1 tab PO DAILY 08/04/20 [History] - CURRENT (IN HOUSE) MEDS Current Meds: Current Medications Discontinued Medications Bupivacaine HCl (Sensorcaine-Mpf 0.5%) Confirm Administered Dose 10 ml .ROUTE .STK-MED ONE Stop: 08/18/20 18:08 Cefazolin Sodium (Ancef) Confirm Administered Dose 1 gm .ROUTE .STK-MED ONE Stop: 08/18/20 18:08 Dexamethasone (Dexamethasone) Confirm Administered Dose 20 mg .ROUTE .STK-MED ONE Stop: 08/18/20 18:12 Fentanyl (Sublimaze) Confirm Administered Dose 100 mcg .ROUTE .STK-MED ONE Stop: 08/18/20 18:08 Glycopyrrolate (Robinul) Confirm Administered Dose 0.2 mg .ROUTE .STK-MED ONE Stop: 08/18/20 18:08 Acetaminophen (Ofirmev) Confirm Administered Dose 100 mls @ as directed .ROUTE .STK-MED ONE Stop: 08/18/20 18:10 Iopamidol (Isovue Multipack-370 (76%)) 100 ml IVPUSH ONETIME ONE Stop: 08/18/20 16:33 Last Admin: 08/18/20 16:33 Dose: 100 ml Documented by: Midazolam HCl (Versed 1 Mg/Ml) Confirm Administered Dose 2 mg .ROUTE .STK-MED ONE Stop: 08/18/20 18:08 Morphine Sulfate (Morphine) Confirm Administered Dose 10 mg .ROUTE .ST-MED ONE Stop: 08/18/20 18:13 Ondansetron HCl (Zofran) Confirm Administered Dose 4 mg .ROUTE .[facility]-MED ONE Stop: 08/18/20 18:08 Propofol (Diprivan 20 Ml) Confirm Administered Dose 400 mg .ROUTE .[facility]-MED ONE Stop: 08/18/20 18:08 Rocuronium [place] (Rocuronium [place]) Confirm Administered Dose 50 mg .ROUTE .ST-MED ONE Stop: 08/18/20 18:08 Sugammadex Sodium (Bridion) Confirm Administered Dose 200 mg .ROUTE .[facility]-MED ONE Stop: 08/18/20 18:10
[2020-08-18] MEDS ORDERED: Morphine 10 MG/ML Syringe IVPUSH PRN (19:43)
[2020-08-18] MEDS ORDERED: Acetaminophen/HYDROcodone 325-5 MG Tab PO PRN (19:43)
[2020-08-18] MEDS ORDERED: Lactated Ringers 1,000 ML IV SCH (19:45)
--- NOTE | 2020-08-18 19:47 | PCM.OPNOTE ---
- General Post-Op/Procedure Note Date of Surgery/Procedure: 08/18/20 Operative Procedure(s): Examination under anesthesia. Incision and drainage recurrent perirectal abscess. Pre Op Diagnosis: Recurrent perirectal abscess Post-Op Diagnosis: Same Anesthesia Technique: General ET Tube (ASA IIE) Primary Surgeon: Galileo Escobedo Hog Buyer: Jose Elizondo Fluid Replacement, Intraop: 700 EBL in mLs: 20 Surgical Drain/Tube Type: Mary Jo Condition: Good Free Text/Narrative:: DICTATION [id number] CPT CODE 74412/20408
[2020-08-18] MEDS ORDERED: fentaNYL 50 MCG/ML SDV IVPUSH ONE (20:01)
--- NOTE | 2020-08-18 20:23 | PCM.POSTAN ---
POST ANESTHESIA ASSESSMENT - MENTAL STATUS Mental Status: Alert, Oriented - VITAL SIGNS Vital Signs: Last Vital Signs Temp 97.9 F 08/18/20 19:48 Pulse 92 08/18/20 20:18 Resp 17 08/18/20 20:18 BP 116/74 08/18/20 20:18 Pulse Ox 95 08/18/20 20:18 - RESPIRATORY Respiratory Status: Respiratory Rate WNL, Airway Patent, O2 Saturation Stable - CARDIOVASCULAR CV Status: Pulse Rate WNL, Blood Pressure Stable - GASTROINTESTINAL GI Status: No Symptoms - POST OP HYDRATION Hydration Status: Adequate & Stable
--- NOTE | 2020-08-19 07:18 | PCM48HPAN ---
Post Anesthesia Note - EVALUATION WITHIN 48HRS OF ANESTHETIC Vital Signs in Normal Range: Yes Patient Participated in Evaluation: Yes Respiratory Function Stable: Yes Airway Patent: Yes Cardiovascular Function Stable: Yes Hydration Status Stable: Yes Pain Control Satisfactory: Yes Nausea and Vomiting Control Satisfactory: Yes Mental Status Recovered: Yes Vital Signs: Last Vital Signs Temp 36.2 C 08/18/20 23:05 Pulse 75 08/18/20 23:05 Resp 17 08/18/20 23:05 BP 123/78 08/18/20 23:05 Pulse Ox 97 08/18/20 23:05 - COMMENTS/OBSERVATIONS Free Text/Narrative:: Doing well. Dischargable.
--- NOTE | 2020-08-19 07:43 | OR ---
SURGEON: Galileo Escobedo M.D. DATE OF PROCEDURE: 08/18/2020 PROCEDURE PERFORMED: Examination under anesthesia with incision and drainage recurrent perirectal abscess with loculation. PRIMARY SURGEON: Galileo Escobedo M.D. CAMERA MECHANIC: district administrative assistant: CARSON Pereyra student. ANESTHESIA: General endotracheal. ASA CLASSIFICATION: IIE. PREOPERATIVE DIAGNOSIS: Recurrent perirectal abscess. POSTOPERATIVE DIAGNOSIS: Recurrent perirectal abscess. ESTIMATED BLOOD LOSS: 20 mL. INTRAOPERATIVE FLUID REPLACEMENT: 700 mL of crystalloid. DESCRIPTION OF PROCEDURE: The patient was taken to the operating room and kept on the transfer cart in the supine position. Time-out was called for appropriate identification of the patient and procedure. Sequential compression boots were placed. Following satisfactory attainment of general endotracheal anesthesia, the patient was placed on the operating table in the prone position with care taken to pad all bony prominences. The buttocks were taped apart and the surgical site was now prepped with Betadine solution. Digital examination revealed areas of loculated pus. All loculations were broken up digitally. Aerobic and anaerobic cultures were obtained. Hemostasis was obtained with the use of electrocautery. The large abscess cavity was then irrigated with approximately 1500 mL of saline. Further bleeding sites were electrocoagulated. Once hemostasis was adequate, 1- inch Mary Jo drain was brought to the operating table and placed into two of the cavities. This was secured to the skin with 2-0 nylon suture. Wound was again inspected for hemostasis, no other bleeding was noted. The surgical site was then dressed with fluffs and an ABD held in place with tape and mesh panties. The patient tolerated the procedure well. She was then returned to the transfer cart to the supine position. She was then allowed to emerge from anesthesia and extubated and taken to recovery room in stable condition. MEY / RICO /[id number] SILVERIO
== END 2020-08-18 23:10 | disposition home or self-care (01) ==
LOC: MW.ED 14:17 → MW.SDS 17:43 → MW.MS 20:55 → MW.SDS 23:10
PROVIDERS: ATTEND Surgery
DX: K61.1 Rectal abscess (principal); F17.210 Nicotine dependence, cigarettes, uncomplicated; Z01.812 Encounter for preprocedural laboratory examination; Z20.828 Contact with and (suspected) exposure to other viral communicable diseases; Z79.899 Other long term (current) drug therapy; Z98.890 Other specified postprocedural states
CPT/HCPCS: 36415; 46040; 74177; 80053; 83605; 84703; 85025; 87040; 87070; 87075; 87077; 87205; 87635; A9270; J0131; J1100; J2250; J2405; J2704; J3010; J3490; Q9967; 00902; 99284; 99284-25; J0690; J2270; U0002